=== PATIENT | female | born 1955 | race Caucasian/White ===

== ENCOUNTER 2018-02-13 10:30 | Inpatient (IN) | payer OTHER, SELFPAY ==
[2018-02-09 12:33] VITALS: BMI 36.9
[2018-02-13] VITALS (12 sets, daily range): BP systolic 144–177; BP diastolic 74–93; PULSE 60–91; RESP 7–17; TEMP 36.4–36.8; O2SAT 86–100; BMI 36.9
--- NOTE | 2018-02-13 | DI.RAD.S_ITS ---
PROCEDURE: XR CERVICAL SPINE 2V OR 3V INDICATIONS: C4-5, C5-6, C6-7 ACDF FINDINGS: 3 limited intraoperative fluoroscopically stored images of the cervical spine were obtained for intraoperative hardware localization purposes. These images are not meant for diagnostic purposes. Intraoperative findings related to an anterior cervical discectomy and fusion are present. IMPRESSION: Intraoperative images obtained during the patient's cervical fusion procedure. Dictated by: Chun Hurt M.D. on 02/13/2018 at 13:48 Approved by: Chun Hurt M.D. on 02/13/2018 at 13:52
[2018-02-13] MEDS: LACTATED RINGERS 1,000 ML 42 ML IV ×2 (11:10→13:26)
--- NOTE | 2018-02-13 11:41 | PM.PREOP ---
Pre-operative Note Interval Note Pre-op Check: Yes History & Physical Reviewed by Physician, Yes Exam Performed and Yes History & Physical exam performed today by Physician Changes: No
[2018-02-13] MEDS: CEFAZOLIN 2 GM/100 ML FROZ.PIGGY IV ×2 (11:59→20:39)
--- NOTE | 2018-02-13 12:36 | SUR.OPER ---
Addendum entered by Mariel Bellamy R.N. 02/13/18 14:03: pillow under knees, gel pad under heels. Original Note: Supine, head on gel donut. Arms padded with gel pads, tucked at sides, towel roll under shoulders. Safety belt at thigh. Legs uncrossed. Tape from shoulders to end of bed.
--- NOTE | 2018-02-13 14:47 | PM.OP.1 ---
Operative Date/Time/Diagnoses Date of procedure: 02/13/18 Time of procedure: 12:06 Pre-op diagnosis: 1. C4-5, C5-6, C6-7 spondylosis with radiculopathy 2. C4-5, C5-6, C6-7 spinal stenosis Post-op diagnosis: same Procedure & Clinicians Procedure: 1. C4-5 C5-6 C6-7 anterior cervical diskectomy and fusion 2. C4-5 C5-6 C6-7 anterior interbody cage placement 3. C4-5 C5-6 C6-7 anterior instrumentation with plate and screw placement in C4-C5-C6 and C7 vertebrae 4. Utilization of microsurgical technique and operating microscope Same procedure as scheduled: Yes Indications: Patient has been having chronic neck pain and worsening cervical radiculopathy. Patient failed multiple conservative management with worsening pain weakness and numbness in her upper extremity. Patient has been having difficulty performing activity of daily living. After discussing risks benefits of treatment options, patient elected proceed with surgery. Surgeon: Candy Gregory Geospatial Extractor Analysis: Paola Allen Click Yes if Unassisted: No Anesthesia Type: General Operative Notes Closure Type: primary Specimen(s): none sent Implants & Drains: Globus extend plate, PEEK cages Applied: catheter Estimated Blood Loss (mL): 10 Blood products transfused: none Procedure in detail: Patient was seen in the preoperative area. Risks and benefits of the surgery was discussed with the patient. Operative consent was obtained and placed in the chart. Patient was then taken to the operative room. Prophylactic antibiotic was given less than 0.5 hr prior to skin incision. General anesthesia was administered. Patient was placed into a supine position on her radiolucent table. Bilateral shoulders were taped down to allow proper C-arm imaging. Anterior cervical area was prepped and draped in a sterile fashion. Time-out was performed at this time. Using lateral C-arm imaging, the level between C4 and C7 was identified and marked on patient's neck. A oblique incision from midline towards medial border of sternocleidomastoid muscle was made. The platysma muscle was incised in line with skin incision. Metzenbaum scissor was used to develop the plane between the medial border of sternocleidomastoid d and the strap muscles medially. The carotid sheath and its contents were identified and protected behind the hand-held retractor during the entire case. The plane between the carotid sheath and strap muscles was developed with Metzenbaum scissors. Dissection was made down to the level of the anterior cervical fascia. Longus colli muscle was incised on the anterior aspect of vertebral bodies bilaterally from C4-C7. Spinal needle was placed into the C4-5 disc space and confirmed with lateral C-arm imaging. Using microsurgical technique and operative microscope, anterior cervical diskectomy was performed at C4-5 C5-6 and C6-7 level. This was done by removing the disc material, removing the anterior and posterior osteophytes posterior longitudinal ligaments along with performing bilateral foraminotomies at all 3 levels. Patient was found to have severe central and foraminal stenosis at all 3 levels. Patient's stenosis was fully decompressed after decompression was completed. After the diskectomy was completed, 3 anterior interbody cages were obtained. The cages were packed with globus via cell bone grafting material. One cage each along with the bone grafting material was then packed into the interbody spaces from C4-C7 with one cage into each interbody level. After the cages were placed, the anterior cervical plate was stabilized to the C4-C7 vertebrae using 2 screws at each each level. Total 8 screws were placed. After confirming placement of the hardware with AP and lateral C-arm imaging, the screws were locked into the plate using the locking mechanism and torque limiting screwdriver. After the hardware was placed and confirmed with AP and lateral C-arm imaging, the wound was irrigated with sterile normal saline. The platysma muscle and the subcutaneous tissue was closed with 2-0 Vicryl. The skin was closed with 4-0Monocryl and Steri-Strips. Patient tolerated the procedure well. Patient was transferred recovery room in stable condition. There were no complications. Complications: none Condition: stable Disposition: PACU Plan for aftercare: Admit to inpatient hospital
[2018-02-13] MEDS: HYDROMORPHONE 2 MG INJ 0.5 MG IV ×2 (15:16→15:24)
--- NOTE | 2018-02-13 15:35 | SUR.PHASEI ---
neck christa brandon, Dr. Gregory inspected dressing. No new orders at this time, will continue to monitor.
--- NOTE | 2018-02-13 15:40 | SUR.PHASEI ---
Report called to Ho. Pt taken upstairs by Julianna
--- NOTE | 2018-02-13 15:41 | SUR.PHASEI ---
pt moving all extremities without difficutly. Neck dressing continuing to ooze sero-sang fluid. Neck collar in place. IV saline locked. Pt's belongings bag and glasses/case with patient,
--- NOTE | 2018-02-13 16:45 | PC.NURSE ---
Pt admitted to acute care from PACU. Drowsy/oriented. Spouse at bedside. Denies pain. Reports uncomfortable assisted to reposition, ice pack given to pt. Oriented to room/call light.
[2018-02-13] MEDS: SODIUM CHLORIDE 0.9% 1,000 ML 100 ML IV (17:04)
[2018-02-13] MEDS: OXYCODONE IR 5 MG TABLET 10 MG PO (18:40)
[2018-02-13] MEDS: hydrOXYzine pamoate 25 MG CAPSULE PO (18:41)
[2018-02-13] MEDS: ROSUVASTATIN 10 MG TABLET PO (20:39)
[2018-02-13] MEDS: DULOXETINE 30 MG CAPSULE 90 MG PO (20:39)
[2018-02-13] MEDS: ATENOLOL 50 MG TABLET PO (20:39)
[2018-02-13] MEDS: DOCUSATE 100 MG CAPSULE PO (20:39)
[2018-02-13] MEDS: SENNOSIDES 8.6 MG TABLET 17.2 MG PO (20:40)
[2018-02-13] MEDS: LISINOPRIL 10 MG TABLET PO (20:40)
[2018-02-13] MEDS: TOPIRAMATE 100 MG TABLET PO (20:40)
[2018-02-13] MEDS: EZETIMIBE 10 MG TABLET PO (20:40)
[2018-02-13] MEDS: TRAZODONE 50 MG TABLET PO (20:41)
[2018-02-14] MEDS: hydrOXYzine pamoate 25 MG CAPSULE PO ×2 (00:27→04:27)
[2018-02-14] MEDS: OXYCODONE IR 5 MG TABLET 10 MG PO ×4 (00:27→12:11)
[2018-02-14 01:07] VITALS: BP 153/79; PULSE 82; RESP 20; TEMP 36.7; O2SAT 95
[2018-02-14 04:05] VITALS: BP 163/84; PULSE 78; RESP 20; TEMP 36.7; O2SAT 97
[2018-02-14] MEDS: CEFAZOLIN 2 GM/100 ML FROZ.PIGGY IV (04:26)
[2018-02-14] MEDS: LEVOTHYROXINE 125 MCG TABLET PO (05:50)
[2018-02-14 06:34] LABS: Hematocrit 38.6 % (36-46); Hemoglobin 13.1 g/dL (12.0-16.0)
--- NOTE | 2018-02-14 07:23 | PM.DS.1 ---
History of Present Illness Date Patient Seen: 02/14/18 Time Patient Seen: 07:20 Chief complaint: [id number] Narrative: Patient seen bedside s/p C4-C5, C5-C6, C6-C7 ACDF on 02/13/[address] Gregory. Patient's dressing became saturated overnight, but pain is well controlled. She denies CP, SOB, or numbness/tingling into the hands. She does complain of pain in her shoulders. Discharge Providers Date of admission: 02/13/18 10:30 Consults: 02/13/18 15:52 Consult to Occupational Therapy Evaluate & Treat Comment: Physician Instructions: Evaluate and treat Consult to Physical Therapy Evaluate & Treat Comment: Physician Instructions: Evaluate and Treat Discharge provider: Judy Adrian PA-C Discharge Date: 02/14/18 Summary Discharge Diagnosis: 1. Cervical spinal stenosis 2. OA of cervical spine with radiculopathy Hospital Course: Patient was admitted to the hospital s/p C4-C5, C5-C6, C6-C7 ACDF on 02/13/[address] Gregory. Patient tolerated the procedure well with no major complications. Patient was transferred to the acute care floor and placed on the standard lumbar spine postop protocol. She was seen by Physical therapy who recommended she be discharged home. The patient was stable ready for discharge on 02/14/2018. Status at Discharge Cognitive/behavioral status at discharge: Alert & oriented x4 Functional status at discharge: independent ambulation Overall status at discharge: patient is progressing back to baseline Time Spent with Patient Less than 30 minutes Exam Vital Signs (past 8 hours): - 02/14/18 01:07 02/14/18 04:05 Temperature 98.1 F 98.0 F Pulse Rate 82 78 Respiratory Rate 20 20 Blood Pressure 153/79 H 163/84 H Pulse Oximetry 95 97 Oxygen Delivery Method Room Air Oxygen Flow Rate 2 Narrative Exam Narrative: Well-developed well-nourished no acute distress. Patient is alert and oriented x3. Dressing over the anterior neck incision is saturated. This was removed area was cleaned and no acute drainage was noted. A Steri-Strip was placed over the incision and this was covered by 4 x 4 and Tegaderm. No signs of focal deficits noted. Upper extremities are neurovascularly intact. Objective Labs Result Diagrams: 02/14/18 05:43 Discharge Plan Discharge Plan Patient Disposition: Home Discharge Med Rec/Prescriptions Prescriptions: New acetaminophen 325 mg Tablet 650 mg PO Q6HR PRN (Reason: Pain, Mild (1-3)) Qty: 0 RF: 0 hydroxyzine pamoate 25 mg Capsule 25 mg PO Q4HR PRN (Reason: Nausea And Vomiting) Qty: 50 RF: 0 oxycodone 5 mg tablet 5 mg PO Q4-6H PRN (Reason: pain) Qty: 40 RF: 0 Continue trazodone 50 mg Tablet 50 mg PO BEDTIME RF: 0 lisinopril 10 mg Tablet 10 mg PO BEDTIME RF: 0 topiramate 100 mg Tablet 100 mg PO BEDTIME RF: 0 atenolol 50 mg Tablet 50 mg PO BID RF: 0 ezetimibe [Zetia] 10 mg Tablet 10 mg PO BEDTIME RF: 0 rosuvastatin [Crestor] 10 mg Tablet 10 mg PO BEDTIME RF: 0 duloxetine 60 mg Capsule,Delayed Release(Dr/Ec) 90 mg PO BEDTIME RF: 0 hydrochlorothiazide 12.5 mg Tablet 12.5 mg PO DAILY RF: 0 levothyroxine 125 mcg Capsule 125 mcg PO QAM RF: 0 Discontinued aspirin [Aspir-81] 81 mg Tablet,Delayed Release (Dr/Ec) 81 mg PO BEDTIME RF: 0 Follow up/Referrals: Candy Gregory MD [Physician] - 02/27/18 10:00 am (Follow up with Valentine Haque PA-C at the [place] office.) Provider Discharge Instructions Diet: Diet as Tolerated Activity: weightbearing as tolerated, avoid bending/twisting neck. Wear soft collar until post-op appointment. Cold/Heat Therapy: Apply ice to affected area 15 minutes at a time at least hourly as needed for pain/swelling Skin/Wound/Dressing Care Report to your healthcare provider any signs of infection, such as:: chills, fever, night sweats, increased pain, unusual drainage and unusual redness Dressing: Keep dressing clean, dry, and intact. May shower with dressing in place. Will change at post-op appointment. Visit Report/Discharge Packet Instructions: DI for Anterior Cervical Discectomy and Fusion, Oxycodone, Hydroxyzine Visit Report Forms: Stroke Signs & Symptoms Discharge Data Attending Provider: Candy Gregory Admit Date/Time: 02/13/18 10:30 Quality VTE Deep Vein Thrombosis/Pulmonary Embolism Present on Admission: No
[2018-02-14] MEDS: hydroCHLOROthiazide 12.5 MG CAPSULE PO (07:42)
[2018-02-14] MEDS: DOCUSATE 100 MG CAPSULE PO (07:42)
[2018-02-14] MEDS: ATENOLOL 50 MG TABLET PO (07:42)
[2018-02-14 09:15] VITALS: BP 145/78; PULSE 68; RESP 18; TEMP 37.2; O2SAT 95
--- NOTE | 2018-02-14 09:40 | PT.IIE ---
Addendum entered and electronically signed by Arnoldo aMrin, PT 02/14/18 09:57: pt without concerns to d/c. She was indep. with toileting and mobility, occupational therapy not necessary at this time. Original Note: Current Diagnoses Other spondylosis with radiculopathy, cervical region (02/13/18) Spinal stenosis, cervical region (02/13/18) Surgery Performed Operation Date: 02/13/18 12:15 Actual Procedures p C4-5,C5-6,C6-7 ACDF w/Anterior Instru. - Candy Gregory MD Surgical History (Last Updated 02/09/18 @ 13:21 by Daya Barrera, RN) History of bilateral knee arthroplasty (Acute) History of bunionectomy of left great toe (Acute) History of partial hysterectomy (Acute) Hx of appendectomy (Acute) Hx of bilateral breast reduction surgery (Acute) Hx of heart artery stent (Acute ~2012) Hx of laparoscopic gastric banding (Acute ~2009) Hx of ovarian cystectomy (Acute) Hx of shoulder surgery (Acute) Status post cataract extraction of both eyes with insertion of intraocular lens (Acute) Medical History (Last Updated 02/09/18 @ 13:21 by Daya Barrera RN) Antiphospholipid antibody positive (Acute) Anxiety (Acute) CAD (coronary artery disease) (Acute) Chronic low back pain (Acute) Chronic pain of both knees (Acute) DVT (deep venous thrombosis) (Acute) Depression (Acute) HTN (hypertension) (Acute) Head injury (Acute) Hypercholesteremia (Acute) Hypothyroid (Acute) Kidney disease (Acute) Physical Therapy Inpatient Evaluation/Re-Eval M1 PT/OT-IP Prior Functional Status Start: 02/14/18 09:48 Freq: NEEDED Status: Active Protocol: Document 02/14/18 09:40 [facility] (Rec: 02/14/18 09:57 [facility] [id number]) Medical Review Prior Functional Status Medical History Reviewed Yes Mobility and Gait indep. community ambulation without device. Activities of Daily Living and IADL's indep. I/ADLs Social History Household Members spouse Living Arrangements House Number of Floors (Floors) Two Floors Number of Stairs To Enter/Railing? 8 SE B rails, all needs on main level does not need to go upstairs Additional Social History Comment has 1 wk off to assist upon d/c. Pt to sleep in recliner initially upon d/c. M2 PT-IP Current Condition Start: 02/14/18 09:48 Freq: NEEDED Status: Active Protocol: Document 02/14/18 09:40 [facility] (Rec: 02/14/18 09:57 [facility] [id number]) Physical Therapy Current Condition Current Condition Evaluation Date 02/14/18 Treatment Diagnosis C4-5, 5-6, 6-7 ACDF, impaired activity tolerance Onset Date 02/13/18 Precautions Cervical Spine Precautions Soft Collar for Comfort No Heavy Lifting Log Roll M3 PT-IP Subjective Start: 02/14/18 09:48 Freq: NEEDED Status: Active Protocol: Document 02/14/18 09:40 [facility] (Rec: 02/14/18 09:57 [facility] [id number]) Subjective Physical Therapy Visit Type Type Initial Evaluation Visit Start Time 09:25 Visit Stop Time 09:40 Total Visit Minutes 15 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 Patient Goals to go home M4 PT-IP Mobility and Gait Start: 02/14/18 09:48 Freq: NEEDED Status: Active Protocol: Document 02/14/18 09:40 [facility] (Rec: 02/14/18 09:57 [facility] [id number]) PT-Transfer Assessment Sit to and From Stand Sit to and from Stand Independent Equipment Transfer Assistive Device None Transfers Transfer Destination Chair Transfer Technique Stand Step Pivot Transfer Ability Level of Assist Independent Comments Mobility Comments pt sitting in chair upon arrival, requested to sit back in chair after mobility. Up to BR to urinate without AD, indep. Gait Assessment Gait Gait Assistance Required: Independent Distance (Feet) 300 Assistive Devices Assistive Device None Gait Deviations General Gait Pattern Decreased Stride Length Factors Limiting Gait Function Factors Limiting Gait Function Decreased Activity Tolerance Decreased Strength Comments Gait Comments decreased R step length due to pt reporting some residual L knee impairments s/p TKA 2011 Stair Climbing Assessment Evaluation Level of Assist On Stairs Standby Assistance Devices Stair Climbing Assistive Devices Left Railing Right Railing Technique/Endurance Stair Climbing Direction Ascend and Descend Stair Climbing Technique Step Over Step Number of Steps Climbed 6 Query Text: PT-Balance Assessment Sitting Balance and Reactions Static Sitting Balance Ability Good Dynamic Sitting Balance Ability Good Standing Balance and Reactions Static Standing Balance Ability Good Dynamic Standing Balance Ability Good Device Used none M5 PT-IP Objective Assessments Start: 02/14/18 09:48 Freq: NEEDED Status: Active Protocol: Document 02/14/18 09:40 [facility] (Rec: 02/14/18 09:57 [facility] [id number]) Orientation Orientation/Cognition Level of Alertness Alert Orientation Name Age Birthday Month Date Year Day of Week Place Situation Language Function Ability No Deficits Noted Safety Awareness Understands Safety Issues Memory Description No Deficits Noted Strength Upper Extremity Strength Assessment Within Functional Limits Lower Extremity Strength Assessment Within Functional Limits Coordination Assessment Gross Coordination Gross Coordination WNL Sensation Assessment Comments Sensation Comments slight tingling in R distal thumb, but improving since surgery (was numb prior per pt ) Muscle Tone Muscle Tone WNL Yes M6 PT-IP Treatment Start: 02/14/18 09:48 Freq: NEEDED Status: Active Protocol: Document 02/14/18 09:40 [facility] (Rec: 02/14/18 09:57 [facility] [id number]) Physical Therapy Treatment Education Education Provided Precautions Safety Other Treatments Other Treatment Performed pt given post-surgical cervical spine handout. M7 PT-IP Assessment and Plan Start: 02/14/18 09:48 Freq: NEEDED Status: Active Protocol: Document 02/14/18 09:40 [facility] (Rec: 02/14/18 09:57 [facility] [id number]) PT Summary Assessment and Plan Potential Rehabilitation Potential Excellent Status of Condition at Evaluation Stable Summary Progress Towards Goals Safe For Discharge Assessment Summary POD #1 C4-5, C5-6, 6-7 ACDF. Pt able to ambulate safely, indep. for 300 ft and managed stairs with bilateral rails without physical assistance, using a step-through pattern for ascend/descending. Pt was able to use BR indep. and has functional ROM and strength in the lower and upper body. Pt at this time does not require any further skilled physical therapy in the acute setting. Precautions were discussed, handout given, and pt with good understanding of these. Pt is cleared to d/c when medically stable. D/c physical therapy. Frequency of Treatment Frequency Of Treatment Discharge Recommendations To Nursing Amount of Assist Needed Standby Assistance Discharge Recommendations PT Discharge Recommendations Home with Assistance
--- NOTE | 2018-02-14 10:19 | OT.IP.TRT ---
Current Diagnoses Other spondylosis with radiculopathy, cervical region (02/13/18) Spinal stenosis, cervical region (02/13/18) Surgery Performed Operation Date: 02/13/18 12:15 Actual Procedures p C4-5,C5-6,C6-7 ACDF w/Anterior Instru. - Candy Gregory MD Occupational Therapy Treatment Note M3 OT- IP Subjective and Pain Start: 02/14/18 10:17 Freq: Status: Active Protocol: Document 02/14/18 10:17 [facility] (Rec: 02/14/18 10:19 [facility] [id number]) OT- Subjective Occupational Therapy Visit Type Type Administrative Note Notes Per PT pt doing well and has supportive to assist and being discharged today. Therefore discharge OT eval orders.
--- NOTE | 2018-02-14 10:37 | CM.DANOTE ---
DCP; Case received, EMR reviewed and met with patient. Introduced self and role. DCP template completed with information currently available. Patient is a 62 year old female who admitted to the care of the hospitalist team. PCP: Dr. Chacon. Payer: confirmed: [facility] Patient came to hospital for procedure. She had C4-5, C5-6, C6-7 Diskectomy and fusion. Met with patient in room. Pleasant, alert and oriented. Wearing a cervical collar. Is independent at home. Has spouse who is supportive, as well. P: DCP to continue to follow. Is to be discharged home when stable. Judith Mcdonald, RN/Projection Camera Operator
--- NOTE | 2018-02-14 13:15 | PC.NURSE ---
Pt given dc information and scripts and taken by wheelchair to ER entrance.
== END 2018-02-14 13:16 | disposition home or self-care (01) | DRG 473 ==
PROVIDERS: Admitting Provider Anesthesiology; PCP Physician Assistant; Visit Provider Orthopaedic Surgery Orthopaedic Surgery of the Spine
PROC: 0RG20A0 Fusion of 2 or more Cervical Vertebral Joints with Interbody Fusion Device, Anterior Approach, Anterior Column, Open Approach (ICD-10-PCS; principal; 2018-02-13 12:15)
DX: M48.02 Spinal stenosis, cervical region (principal); M47.22 Other spondylosis with radiculopathy, cervical region; E07.9 Disorder of thyroid, unspecified; G47.30 Sleep apnea, unspecified; F32.9 Major depressive disorder, single episode, unspecified; E66.9 Obesity, unspecified; Z68.36 Body mass index [BMI] 36.0-36.9, adult
CPT/HCPCS: 36415; 72040; 76001; 85014; 85018; 97161; C1776; J0690; J1100; J1170; J2250; J2405; J2704; J3010